=== PATIENT | female | born 1995 | race Caucasian/White ===

== ENCOUNTER → 2019-02-12 09:33 | Outpatient (CLI) | payer OTHER, MEDICAID, SELFPAY ==
[2019-02-12 11:44] LABS: HCG,Quantitative 207 mIU/mL
== END ==
PROVIDERS: Visit Provider Obstetrics & Gynecology
DX: O20.0 Threatened abortion (principal); Z34.90 Encounter for supervision of normal pregnancy, unspecified, unspecified trimester
CPT/HCPCS: 36415; 84702; 86850

== ENCOUNTER → 2019-02-15 11:29 | Outpatient (CLI) | payer OTHER, SELFPAY ==
[2019-02-15 12:21] LABS: Basophils % 0.5 % (0.1-2.0); Eosinophils # 0.1 K/mm3 (0.0-0.4); Eosinophils % 0.6 % (0.1-12.0); Hematocrit 44.2 % (37.0-47.0); Hemoglobin 15.7 g/dL (12.2-16.2); Lymphocytes # 2.9 K/mm3 (0.7-4.5); Lymphocytes % 33.8 % (10-50); Mean Corpuscular HGB Conc 35.4 g/dL (31.8-35.4); Mean Corpuscular Hemoglobin 31.2 pg (27.0-31.2); Mean Corpuscular Volume 88.3 fl (81-99); Mean Platelet Volume 7.1 fl (7.4-10.4); Monocytes # 0.4 K/mm3 (0.1-1.0); Monocytes % 4.1 % (1.7-9.3); Neutrophils # 5.2 K/mm3 (1.8-7.8); Neutrophils % 60.9 % (37.0-80.0); Platelet Count 244 K/mm3 (142-424); Red Blood Count 5.01 M/mm3 (4.20-5.40); Red Cell Distribution Width 12.7 % (11.5-17.5); White Blood Count 8.6 K/mm3 (4.8-10.8)
[2019-02-15 12:54] LABS: HCG,Quantitative 285 mIU/mL; Thyroid Stimulating Hormone 1.39 uIU/ml (0.358-3.740)
[2019-02-16 08:54] LABS: HIV Screen 4th Generation wRfx Non Reactive (Non Reactive); Hepatitis B Surface Antigen Negative (Negative); Rubella Antibodies, IgG <0.90 index (Immune >0.99)
[2019-02-16 10:21] LABS: Rapid Plasma Reagin Ab Titer Non Reactive (NonRea<1:1)
== END ==
PROVIDERS: Visit Provider Obstetrics & Gynecology
DX: Z34.90 Encounter for supervision of normal pregnancy, unspecified, unspecified trimester (principal); O20.0 Threatened abortion
CPT/HCPCS: 36415; 84443; 84702; 85025; 86592; 86703; 86762; 87340; G0432

== ENCOUNTER → 2019-02-20 17:47 | Outpatient (CLI) | payer OTHER, MEDICAID, SELFPAY ==
[2019-02-20 19:50] LABS: HCG,Quantitative 175 mIU/mL
== END ==
PROVIDERS: Visit Provider Obstetrics & Gynecology
DX: O20.0 Threatened abortion (principal)
CPT/HCPCS: 36415; 84702

== ENCOUNTER → 2019-02-26 16:44 | Outpatient (CLI) | payer OTHER, MEDICAID, SELFPAY ==
[2019-02-26 18:04] LABS: HCG,Quantitative 41 mIU/mL
== END ==
PROVIDERS: Visit Provider Obstetrics & Gynecology
DX: O20.0 Threatened abortion (principal)
CPT/HCPCS: 36415; 84702

== ENCOUNTER → 2019-07-23 10:12 | Outpatient (CLI) | payer OTHER, SELFPAY ==
[2019-07-23 10:42] LABS: Basophils # 0.1 K/mm3 (0-0.2); Basophils % 0.5 % (0.1-2.0); Eosinophils # 0.1 K/mm3 (0.0-0.4); Eosinophils % 0.8 % (0.1-12.0); Hematocrit 43.2 % (37.0-47.0); Hemoglobin 14.8 g/dL (12.2-16.2); Lymphocytes # 2.6 K/mm3 (0.7-4.5); Lymphocytes % 26.5 % (10-50); Mean Corpuscular HGB Conc 34.4 g/dL (31.8-35.4); Mean Corpuscular Hemoglobin 30.4 pg (27.0-31.2); Mean Corpuscular Volume 88.6 fl (81-99); Mean Platelet Volume 6.7 fl (7.4-10.4); Monocytes # 0.5 K/mm3 (0.1-1.0); Monocytes % 5.2 % (1.7-9.3); Neutrophils # 6.6 K/mm3 (1.8-7.8); Neutrophils % 67.1 % (37.0-80.0); Platelet Count 264 K/mm3 (142-424); Red Blood Count 4.87 M/mm3 (4.20-5.40); Red Cell Distribution Width 12.9 % (11.5-17.5); White Blood Count 9.9 K/mm3 (4.8-10.8)
[2019-07-23 11:40] LABS: Thyroid Stimulating Hormone 2.43 uIU/ml (0.358-3.740)
[2019-07-23 12:43] LABS: Amphetamine/Metha Screen,Urine Negative ng/mL (<1000); Barbiturates Screen,Urine Negative ng/mL (<200); Benzodiazepines Screen,Urine Negative ng/mL (<200); Cannabinoid Screen,Urine Negative ng/mL (<50); Cocaine Screen,Urine Negative ng/mL (<300); Methadone Screen,Urine Negative ng/mL (<300); Opiate Screen,Urine Negative ng/mL (<300); Phencyclidine Screen,Urine Negative ng/mL (<25)
[2019-07-24 11:17] LABS: HIV Screen 4th Generation wRfx Non Reactive (Non Reactive)
[2019-07-24 11:20] LABS: Hepatitis B Surface Antigen Negative (Negative); Hepatitis C Antibody <0.1 s/co ratio (0.0-0.9); Rubella Antibodies, IgG <0.90 index (Immune >0.99)
[2019-07-24 11:21] LABS: Rapid Plasma Reagin Ab Titer Non Reactive (NonRea<1:1)
== END ==
PROVIDERS: Visit Provider Obstetrics & Gynecology
DX: Z34.90 Encounter for supervision of normal pregnancy, unspecified, unspecified trimester (principal)
CPT/HCPCS: 36415; 80305; 84443; 85025; 86592; 86703; 86762; 86850; 87340; 87380; G0432

== ENCOUNTER → 2019-10-03 15:08 | Outpatient (CLI) | payer MEDICAID, SELFPAY ==
[2019-10-06 02:07] LABS: DIA MoM 0.88 (.); DIA Value 113.43 pg/mL (.); DSR (Second Trimester) 1 IN 3742 (.); Maternal Age At EDD 23.6 yr (.); OSBR Risk 1 IN 10000 (.); Results Report (.); hCG MoM 1.06 (.); uE3 MoM 0.82 (.); uE3 Value 0.65 ng/mL (.)
[2019-10-06 18:14] LABS: Gestat. Age Based On EDD (.)
== END ==
PROVIDERS: Visit Provider Obstetrics & Gynecology
DX: Z34.90 Encounter for supervision of normal pregnancy, unspecified, unspecified trimester (principal)
CPT/HCPCS: 36415; 82106

== ENCOUNTER → 2019-10-23 09:34 | Outpatient (CLI) | payer MEDICAID, SELFPAY ==
--- NOTE | 2019-10-23 09:39 | US_ITS ---
PROCEDURE: US OB /MATERNAL DETAIL CLINICAL INDICATION: Twenty week anatomy check the COMPARISON: No exams were available for comparison FINDINGS: Single viable intrauterine gestation. Breech position. Placenta: Fundal/posteriorplacenta grade 1. There is average amount fluid. The cervix appears satisfactory. Closed and measuring 4 cm in length. Complete survey performed and was unremarkable on the submitted images as in PACS. No discrete anomalies identified on survey imaging by technologist. Active fetus. Three-vessel cord with satisfactory umbilical cord insertion. 4- chamber heart noted. Survey of brain & ventricles Unremarkable. Face and neck survey unremarkable. Diaphragm and chest views unremarkable. Abdomen: Both kidneys noted and unremarkable. Stomach noted and satisfactory. Spine: Survey of the spine satisfactory with no anomalies identified nor imaged. Both arms and legs noted. Amniotic Fluid: Adequate. Maternal adnexa: No significant findings. Measurements: Average ultrasound age 18 weeks 5 days. Gestational Age 18 weeks Estimated due date by ultrasound age 6 days. Estimated weight 252 ggrams. BPD = 18/5 OFD = 18/5 HC = 18/1 AC = 18/6 FL = 18/6 Growth Percentile= 33.25 Percent% Heart Rate = 149 bpm Cerebellum = 18/5 Humerus = 18/5 HC/AC is 1.13 CI is 0.79 FL/BPD is 0.68 FL/AC is 0.21 IMPRESSION: Single live fetus which is in breech presentation with an average ultrasound age of 18 weeks 5 days. No obvious anomalies. All parameters correlate. Please see above for detail Dictated by: Oj Camargo MD 10/23/2019 20:07 Electronically signed by Oj Camargo MD in [place] 10/24/2019 05:40
== END ==
PROVIDERS: Visit Provider Obstetrics & Gynecology
DX: Z34.90 Encounter for supervision of normal pregnancy, unspecified, unspecified trimester (principal)
CPT/HCPCS: 76811